=== PATIENT | female | born 1990 | race Caucasian/White ===

== ENCOUNTER 2019-04-18 12:16 | Emergency (ER) | payer SELFPAY ==
[~2019-04-18] VITALS: Ht 157.5 cm; Wt 104.5 kg
[2019-04-18 12:25] VITALS: BP 131/91; TEMP 98.6
[2019-04-18] MEDS ORDERED: ADVIL200 MG PO (12:55)
[2019-04-18] MEDS ORDERED: TYLENOL 325MG325 MG PO (12:55)
[2019-04-18 14:11] VITALS: PULSE 96
== END 2019-04-18 14:11 | disposition home or self-care (01) ==
LOC: COL.ER 12:16
DX: S01.412A Laceration without foreign body of left cheek and temporomandibular area, initial encounter (principal); S01.112A Laceration without foreign body of left eyelid and periocular area, initial encounter; Z23 Encounter for immunization; W22.8XXA Striking against or struck by other objects, initial encounter; Y92.512 Supermarket, store or market as the place of occurrence of the external cause

== ENCOUNTER 2019-04-25 09:18 | Emergency (ER) | payer SELFPAY ==
[~2019-04-25 09:18] MED LIST: ADVIL200 MG PO; TYLENOL 325MG325 MG PO
[2019-04-25 09:28] VITALS: BP 147/877; PULSE 90; TEMP 98.3
== END 2019-04-25 09:35 | disposition home or self-care (01) ==
LOC: COL.ER 09:18
DX: S01.112D Laceration without foreign body of left eyelid and periocular area, subsequent encounter (principal); X58.XXXD Exposure to other specified factors, subsequent encounter